=== PATIENT | male | born 1980 | race African-American/Black ===

== ENCOUNTER 2021-01-16 15:51 | Emergency (ER) | payer OTHER ==
[~2021-01-16] VITALS: Ht 172.7 cm; Wt 79.4 kg
[2021-01-16] MEDS ORDERED: cefTRIAXone W LIDOCAINE 500 MG IM IM ONE (16:30)
[2021-01-16] MEDS ORDERED: cefTRIAXone SODIUM 250 MG VL ONE (16:52)
[2021-01-16] MEDS ORDERED: LIDOCAINE 1% HCL (LOCAL ANESTH.) INJ 20ML MDV ONE (16:52)
[2021-01-16 16:58] VITALS: BP 117/67
[2021-01-17 07:06] LABS: RPR Non Reactive (Non Reactive)
== END 2021-01-16 17:01 | disposition home or self-care (01) ==
LOC: ER 15:51
DX: A54.01 Gonococcal cystitis and urethritis, unspecified (principal)
CPT/HCPCS: 86592; 96372; 99283; J0696; J2001